=== PATIENT | female | born 1965 | race African-American/Black ===

== ENCOUNTER 2018-01-01 17:17 | Inpatient (IN) | payer OTHER ==
[~2018-01-01] VITALS: Ht 149.9 cm; Wt 88.0 kg
[2018-01-01] MEDS ORDERED: Albuterol/Ipratropium 3ml neb HHN ONE ×2 (17:45→18:15)
[2018-01-01] MEDS ORDERED: Benzonatate 100mg Perles ORAL ONE (17:45)
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
[2018-01-01] MEDS ORDERED: NKM (19:15)
[2018-01-01 20:17] LABS: ANION GAP 11 mmol/L (5-15); BLOOD UREA NITROGEN 11 mg/dL (7-18); CALCIUM 9.5 MG/DL (8.5-10.1); CARBON DIOXIDE 26 MMOL/L (21-32); CHLORIDE 105 MMOL/L (98-107); POTASSIUM 3.3 MMOL/L (3.5-5.1); SODIUM 142 MMOL/L (136-145)
[2018-01-01 20:20] LABS: BASOPHILS % (AUTO) 0.6 % (0.0-2.0); EOSINOPHILS % (AUTO) 0.4 % (0.0-3.0); HEMATOCRIT 45.4 % (37.0-47.0); HEMOGLOBIN 14.9 G/DL (12.0-16.0); LYMPHOCYTES % (AUTO) 17.2 % (20.0-45.0); MEAN CORPUSCULAR VOLUME 90 FL (80-99); NEUTROPHILS % (AUTO) 78.9 % (45.0-75.0); PLATELET COUNT 229 K/UL (150-450); RED BLOOD COUNT 5.06 M/UL (4.20-5.40); RED CELL DISTRIBUTION WIDTH 13.3 % (11.6-14.8); WHITE BLOOD COUNT 10.3 K/UL (4.8-10.8)
[2018-01-01] MEDS ORDERED: Isovue-370 150ml vial INJ PRN (20:30)
[2018-01-01 20:31] LABS: ALANINE AMINOTRANSFERASE 43 U/L (12-78); ALBUMIN/GLOBULIN RATIO 0.8 (1.0-2.7); ALKALINE PHOSPHATASE 100 U/L (46-116); ASPARTATE AMINO TRANSFERASE 30 U/L (15-37); BILIRUBIN,TOTAL 0.4 MG/DL (0.2-1.0); CKMB 0.6 NG/ML (0.0-3.6); CREATINE KINASE 132 U/L (26-308)
[2018-01-01 20:54] VITALS: BP 170/96
[2018-01-01 21:50] VITALS: BP 211/111
[2018-01-01 22:40] VITALS: BP 174/98
[2018-01-01 23:08] VITALS: BP 168/100
[2018-01-02] VITALS (7 sets, daily range): BP systolic 134–180; BP diastolic 66–110
[2018-01-02] MEDS ORDERED: Albuterol/Ipratropium 3ml neb HHN SCH (07:00)
[2018-01-02] MEDS ORDERED: HydrALAZINE 25mg tab ORAL SCH (07:00)
--- NOTE | 2018-01-02 08:09 | Cardiology Progress Note ---
Assessment/Plan Assessment/Plan The patient is seen and examined, full consult report will be dictated shortly. Objective Last 24 Hour Vital Signs Date Time Temp Pulse Resp B/P (MAP) Pulse Ox O2 Delivery O2 Flow Rate FiO2 01/02/18 07:35 115 20 100 Room Air 21 01/02/18 07:35 21 01/02/18 07:27 118 20 98 Room Air 21 01/02/18 04:00 99.2 110 19 135/81 (99) 01/02/18 04:00 122 01/02/18 01:23 Room Air Room Air 01/02/18 01:19 98.2 125 22 164/110 (128) 01/02/18 00:19 133 186/113 01/02/18 00:05 99.1 132 20 180/100 100 Room Air 01/01/18 23:08 98.0 118 20 168/100 97 Room Air 01/01/18 22:40 98.4 124 16 174/98 95 Room Air 01/01/18 21:50 98.6 118 20 211/111 98 Room Air 01/01/18 20:54 98.3 128 18 170/96 98 Room Air 01/01/18 19:38 211/145 01/01/18 18:58 119 20 100 Room Air 01/01/18 18:50 112 20 98 Room Air 01/01/18 17:47 115 20 Room Air 01/01/18 17:47 21 01/01/18 17:47 115 20 98 Room Air 01/01/18 17:35 125 26 Room Air 01/01/18 17:24 98.2 125 26 161/107 98 Room Air Intake and Output 01/01/18 01/02/18 18:59 06:59 Intake Total 0 ml 2240 ml Balance 0 ml 2240 ml Intake Oral 0 ml 240 ml IV Total 2000 ml # Voids 2 Laboratory Tests Test 01/01/18 19:30 White Blood Count 10.3 K/UL (4.8-10.8) Red Blood Count 5.06 M/UL (4.20-5.40) Hemoglobin 14.9 G/DL (12.0-16.0) Hematocrit 45.4 % (37.0-47.0) Mean Corpuscular Volume 90 FL (80-99) Mean Corpuscular Hemoglobin 29.5 PG (27.0-31.0) Mean Corpuscular Hemoglobin Concent 32.9 G/DL (32.0-36.0) Red Cell Distribution Width 13.3 % (11.6-14.8) Platelet Count 229 K/UL (150-450) Mean Platelet Volume 9.1 FL (6.5-10.1) Neutrophils (%) (Auto) 78.9 % (45.0-75.0) H Lymphocytes (%) (Auto) 17.2 % (20.0-45.0) L Monocytes (%) (Auto) 3.0 % (1.0-10.0) Eosinophils (%) (Auto) 0.4 % (0.0-3.0) Basophils (%) (Auto) 0.6 % (0.0-2.0) D-Dimer 0.50 mg/L FEU (0.00-0.49) H Sodium Level 142 MMOL/L (136-145) Potassium Level 3.3 MMOL/L (3.5-5.1) L Chloride Level 105 MMOL/L (98-107) Carbon Dioxide Level 26 MMOL/L (21-32) Anion Gap 11 mmol/L (5-15) Blood Urea Nitrogen 11 mg/dL (7-18) Creatinine 1.0 MG/DL (0.55-1.30) Estimat Glomerular Filtration Rate > 60 mL/min (>60) Glucose Level 121 MG/DL (74-106) H Calcium Level 9.5 MG/DL (8.5-10.1) Total Bilirubin 0.4 MG/DL (0.2-1.0) Aspartate Amino Transf (AST/SGOT) 30 U/L (15-37) Alanine Aminotransferase (ALT/SGPT) 43 U/L (12-78) Alkaline Phosphatase 100 U/L (46-116) Total Creatine Kinase 132 U/L (26-308) Creatine Kinase MB 0.6 NG/ML (0.0-3.6) Creatine Kinase MB Relative Index 0.4 Troponin I 0.000 ng/mL (0.000-0.056) Pro-B-Type Natriuretic Peptide 48 pg/mL (0-125) Total Protein 9.0 G/DL (6.4-8.2) H Albumin 4.0 G/DL (3.4-5.0) Globulin 5.0 g/dL Albumin/Globulin Ratio 0.8 (1.0-2.7) L Jax Gonsalez MD Jan 02, 2018 08:09
[2018-01-02] MEDS: dilTIAZem HCl CD 120mg cap ORAL SCH (08:48)
--- NOTE | 2018-01-02 09:02 | Diagnostic Imaging Report ---
Indication: Chest pain Technique: Continuous helical transaxial imaging of the chest was obtained from the thoracic inlet to the upper abdomen during rapid intravenous contrast administration. Arterial phase of enhancement obtained. Coronal 2-D reformats were also obtained and maximum intensity projection images in multiple planes. Study obtained in a Siemens sensation [address] Automatic Exposure Control was utilized. Total Dose length Product (DLP): 689.[address] Dose Index Volume (CTDIvol): 25.79 mGy Comparison: None Findings: The pulmonary artery is not optimally opacified. No obvious central pulmonary embolus identified. Pulmonary emboli at the level of the segmental and subsegmental branches is not excludable. The heart is enlarged. There is a hiatal hernia. There is breathing motion present. Lungs are grossly clear. No pleural or pericardial effusions are identified. IMPRESSION: No obvious central pulmonary embolus, aortic dissection or aneurysm. No acute findings. Suboptimal evaluation. [facility] has communicated the preliminary results to the Emergency Department. Their findings are largely concordant with this report. The CT scanner at [facility] is accredited by the [employer] and the scans are performed using dose optimization techniques as appropriate to a performed exam including Automatic Exposure control.
[2018-01-02] MEDS ORDERED: Ipratropium 0.02% Inh Soln 2.5ml UD HHN PRN (09:30)
--- NOTE | 2018-01-02 09:32 | Consultation ---
Consult Note Consult Note DICT # [id number] Kendrick Lam MD Jan 02, 2018 09:32
[2018-01-02] MEDS ORDERED: ALPRAZolam 0.5mg tab ORAL PRN (09:45)
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
--- NOTE | 2018-01-02 12:12 | Diagnostic Imaging Report ---
Indication: Cough Comparison: None A single view chest radiograph was obtained. Findings: No definite infiltrate or pulmonary vascular congestion identified. The heart is enlarged. The aorta is mildly enlarged consistent with atherosclerotic vascular disease. The bones are unremarkable. Impression: No acute disease
[2018-01-02 13:46] LABS: APPEARANCE,URINE CLEAR; BILIRUBIN, URINE NEGATIVE (NEGATIVE); COLOR,URINE PALE YELLOW; GLUCOSE, URINE (UA) NEGATIVE (NEGATIVE); KETONES,URINE NEGATIVE (NEGATIVE); LEUKOCYTE ESTERASE ,URINE 1+ (NEGATIVE); NITRITE,URINE NEGATIVE (NEGATIVE); PH,URINE 7 (4.5-8.0); PROTEIN,URINE NEGATIVE (NEGATIVE); UROBILINOGEN,URINE NORMAL MG/DL (0.0-1.0)
--- NOTE | 2018-01-02 15:30 | Consultation ---
DATE OF CONSULTATION: 01/02/2018 CARDIOLOGY CONSULTATION CONSULTING PHYSICIAN: Jax Gonsalez M.D. REFERRING PHYSICIAN: Kasie Newberry M.D. REASON FOR CONSULTATION: Management of dyspnea and accelerated hypertension. HISTORY OF PRESENT ILLNESS: The patient is an very unfortunate 52-year-old female with past medical history significant for asthma who presents to the emergency department complaining of shortness of breath. Apparently she got upset at work and that triggered her breathing symptoms. The patient did not respond to her usual inhalers and decided to come to the hospital for further evaluation and management. She had associated dry cough but no fever, chills. She did not have any chest pain at the time of arrival to the hospital. Initial blood pressure at time of arrival to the hospital was 161/107 mmHg and heart rate of 125. She states that she has been feeling palpitation. She denies any prior history of hypertension and a very meticulous about measuring her blood pressure at home. PAST MEDICAL HISTORY: Asthma. PAST SURGICAL HISTORY: None. MEDICATIONS: List of medications at home includes only inhalers the names of which are not known. ALLERGIES: To shellfish. FAMILY HISTORY: No history of premature coronary artery disease or arrhythmogenic in the first-degree relative. REVIEW OF SYSTEMS: HEENT: Denies any headache, diplopia, blurred vision. CONSTITUTIONAL: Denies any fever, chills, night sweats, weight loss. CARDIOVASCULAR: Denies any chest pain, PND, orthopnea, leg swelling, syncope. Positive for palpitation and shortness of breath. PULMONARY: Positive for shortness of breath and cough but no hemoptysis. GASTROINTESTINAL: Denies any nausea, vomiting, diarrhea, constipation, abdominal pain, or GI bleed. GENITOURINARY: Denies any hematuria, dysuria, incontinence. NEUROLOGY: Denies any motor dysfunction, sensory deficit, or altered speech. PHYSICAL EXAMINATION: VITAL SIGNS: Blood pressure was 161/107, respirations 26, pulse of 125, temperature 98.2 degrees Fahrenheit, and O2 saturation 98% on room air. GENERAL: The patient is slightly overweight 52-year-old female, in no apparent respiratory distress. Alert and oriented x4. HEENT: Atraumatic and normocephalic. Anicteric. Pupils are equal, round, and reactive to light and accommodation. Extraocular muscles intact. NECK: JVP less than 5 centimeter. No carotid bruit. Carotid upstrokes 2+ bilaterally. CARDIOVASCULAR: Normal S1, S2. Regular rate and rhythm. No murmurs, gallops, or rubs. PMI is at fourth intercostal space at the midclavicular line. LUNGS: Clear to auscultation bilaterally. ABDOMEN: Soft, nontender, and nondistended. No hepatosplenomegaly. Positive bowel sounds. EXTREMITIES: No evidence of edema, clubbing, or cyanosis. LABORATORY FINDINGS: WBC is 10.3, hemoglobin of 14.9, hematocrit of 45.4, and platelet count is 229. Chemistry shows sodium 142, potassium 3.3, chloride 105, bicarbonate 26, BUN 11, creatinine 1.0, glucose 121. Calcium is 9.5. Troponin I was 0. ProBNP was 48. D-dimer is 0.5. A 12-lead electrocardiogram showed sinus tachycardia at a rate of [address] and T-wave abnormalities. There is evidence of the electrocardiogram. CT angiography of the chest in the emergency department to rule out pulmonary embolism. 1. Dyspnea most likely secondary to acute exacerbation of COPD. Chest x-ray did not show any evidence of pulmonary embolism and normal beta natriuretic peptide essentially rules out congestive heart failure. We will however proceed to obtain 2D echocardiography for assessment of the systolic and diastolic function which can ultimately help with hemodynamics as well. 2. Accelerated hypertension. She gives me reports of blood pressure at times over 180 mmHg, usually blood pressure ranging from 128 to 136 mmHg at home. I would discuss with her in regards with the initiating a long-acting calcium channel kenisha which can also likely help her heart rate. Diltiazem long-acting 120 mg will be initiated. We will monitor the patient's hemodynamics in the next few days. 3. Further diagnostic and therapeutic decision will be based on results of 2D echocardiography. I would like to thank, Dr. Newberry, for the courtesy of this consultation. Jax Gonsalez M.D. DR: Eduarda JOB#: [id number] CC:
--- NOTE | 2018-01-02 15:55 | Cardiology Report ---
APPROVED REPORT EXAM: Two-dimensional and M-mode echocardiogram with Doppler and color Doppler. INDICATION Ventricular function M-Mode DIMENSIONS IVSd1.3 (0.7-1.1cm)Left Atrium (MM)4.0 (1.6-4.0cm) LVDd3.1 (3.5-5.6cm)Aortic Root3.1 (2.0-3.7cm) PWd1.2 (0.7-1.1cm)Aortic Cusp Exc.2.0 (1.5-2.0cm) LVDs1.9 (2.5-4.0cm) PWs1.5 cm Normal left ventricular chamber size, systolic function and wall motion. Left ventricular ejection fraction estimated to be 60 %. Mild left ventricular hypertrophy. Anterior Echo-free space, may be due to pericardial fat or effusion. All other cardiac chamber sizes are within normal limits. Focal aortic valve sclerosis with adequate cusp excursion. Thickened mitral valve leaflets with normal excursion. Mild mitral annulus and aortic root calcification. Normal pulmonic valve structure. Normal tricuspid valve structure. IVC is normal in size with physiological collapse. A color flow and spectral Doppler study was performed and revealed: No aortic insufficiency. Mild to moderate mitral regurgitation. Mitral diastolic velocities suggest mild left ventricular diastolic dysfunction (Grade I). Mild to moderate tricuspid regurgitation. Tricuspid systolic velocities suggests peak right ventricular systolic pressure of 32 mmHg. No pulmonic regurgitation present.
--- NOTE | 2018-01-02 16:45 | Consultation ---
DATE OF CONSULTATION: 01/02/2018 PULMONARY CONSULTATION CONSULTING PHYSICIAN: Kendrick Lam M.D. REFERRING PHYSICIAN: Kasie Newberry M.D. REASON FOR CONSULTATION: Shortness of breath and asthma. HISTORY OF PRESENT ILLNESS: The patient is a 52-year-old female, nonsmoker with stable asthma, who had an incident at work yesterday where she felt her supervisor pumping was accosting her. She noted sudden onset of shortness of breath, wheezing, and palpitations. She was actually told by her supervisor pumping she has to go to the ER to be cleared to come back to work, so she came to the ER for evaluation. Upon presentation to the ER, she was afebrile, but had sinus tachycardia to 125. She was actually tachycardic when she arrived, otherwise she was saturating 100% on room air. Because of concern for pulmonary embolism and a borderline D-dimer, a CT angio was done which was negative for PE. Her troponin is also negative. The patient feels markedly improved now. She states that her shortness of breath is back to baseline. No wheezing. No cough. No fevers or chills. Her chest discomfort has abated. No nausea, vomiting, diarrhea, or constipation. With respect to her asthma, she was diagnosed as a child. She has never been hospitalized or intubated. She uses p.r.n. Ventolin only and has not had an exacerbation in many years. She has no history of tobacco, alcohol, or drug use. PAST MEDICAL HISTORY: Asthma, well controlled. PAST SURGICAL HISTORY: None. ALLERGIES: Shellfish. MEDICATIONS: Cyqed-pi-yejrzvsyr medications, p.r.n. Ventolin. SOCIAL HISTORY: She is , has 3 grown children, works as an GATE TENDER at a facility. No tobacco, alcohol, or drug use. FAMILY HISTORY: No history of cardiopulmonary disease. REVIEW OF SYSTEMS: Negative other than history of present illness. PHYSICAL EXAMINATION: VITAL SIGNS: Temperature 98.7, pulse 120, blood pressure 149/97, respiratory rate 21, saturating 100% on room air. GENERAL: She is an obese female, in no acute distress. Awake, alert, and oriented x3. HEENT: Normocephalic and atraumatic. Oropharynx with moist mucous membranes. NECK: Without lymphadenopathy or JVP. Mallampati score is 4. CHEST: Clear. HEART: Tachycardic, but regular. ABDOMEN: Soft and nontender. EXTREMITIES: No cyanosis, clubbing, or edema. ANCILLARY DATA: White count 10.3, hemoglobin 14.9, and platelet count 229,000. D-dimer 0.5. Sodium 142, potassium 3.3, chloride 105, bicarbonate 26, BUN 11, creatinine 1, glucose 121, calcium 9.5. Total bilirubin 0.4, AST 30, ALT 43, alkaline phosphatase 100. CK 132, CK-MB 0.6, troponin negative, BNP 48. Total protein 9, albumin 4, globulin 5. CT angio of the chest, no parenchymal abnormalities, negative for PE. It was a suboptimal study per the radiologist. ASSESSMENT: The patient is a 52-year-old female, lifelong nonsmoker with history of obesity and well-controlled asthma, presenting with shortness of breath and sinus tachycardia in the setting of an aggravating event at work. I suspect that her constellation of symptoms is initially secondary to anxiety and stress related to an occupational event. She had a borderline D-dimer and a negative CT angio and does not appear to be in an acute exacerbation of her asthma. PROBLEM LIST: 1. Shortness of breath and dyspnea, likely secondary to anxiety related to a work event. 2. Asthma, well controlled without evidence of exacerbation. 3. Sinus tachycardia. 4. Elevated blood pressure (no prior history of hypertension). 5. Obesity. TREATMENT PLAN: 1. Optimize pulmonary hygiene/mobilize as tolerated. 2. No need for any cdnsf-grx-ghkav bronchodilators. 3. P.r.n. Atrovent nebulizers only. 4. Cardiology evaluation is underway. 5. P.r.n. Xanax. 6. Monitor for signs of respiratory infection. 7. Consider Psychiatry evaluation. 8. The patient was advised to report her occupational injury. 9. DVT prophylaxis, heparin subcutaneous. 10. The patient should have outpatient pulmonary evaluation including PFTs and a sleep study. Dr. Newberry, thank you for allowing me to assist in the care of your patient. If I may be of any assistance in the future, please do not hesitate to ask. Kendrick Lam M.D. : Bret JOB#: [id number] CC:
--- NOTE | 2018-01-02 17:38 | Cardiology Report ---
APPROVED REPORT EKG Measurement Heart [id number] Sinus tachycardia Cannot rule out Anterior infarct, age undetermined Abnormal ECG
[2018-01-03] VITALS (7 sets, daily range): BP systolic 123–153; BP diastolic 72–107
--- NOTE | 2018-01-03 | History and Physical Report ---
DATE OF ADMISSION: 01/01/2018 HISTORY OF PRESENT ILLNESS: The patient comes in because of shortness of breath, chest pain, and elevated blood pressure. She has history of asthma. She was also tachycardic. Given breathing treatment, hydralazine, and multiple BP medications and admitted for those reasons. The patient states all this happened , has been complaining of shortness of breath and chest pain for one day, made worse by coughing. The patient is also wheezing and has nonproductive cough. The patient denies fever or chills. Denies orthopnea. Denies pain in the lower extremity. The patient does have some palpitation as well. PAST MEDICAL HISTORY: Significant for asthma. PAST SURGICAL HISTORY: None. ALLERGIES: To shellfish. MEDICATIONS: Inhalers. FAMILY HISTORY: Noncontributory. SOCIAL HISTORY: Denies history of smoking, alcohol, or illicit drugs. REVIEW OF SYSTEMS: HEENT: Denies headaches. RESPIRATORY: Reports shortness of breath and wheezing for the past one day. Wheezing and chest pain as well made worse by coughing. EXTREMITIES: Denies pain in lower extremity. CENTRAL NERVOUS SYSTEM: No change in vision or speech pattern. PHYSICAL EXAMINATION: GENERAL: The patient is not in any acute distress. VITAL SIGNS: Temperature is basically 98.5, pulse is 120, and blood pressure 149/97. HEENT: PERRLA. NECK: Supple. No lymphadenopathy. CHEST: Bilateral wheezing. CARDIOVASCULAR: Tachycardic. GASTROINTESTINAL: Soft, nontender, nondistended. No organomegaly. EXTREMITIES: No edema. NEUROLOGIC: Sensory intact to light touch. Reflexes are equal on both sides and moves all four extremities. LABORATORY DATA: WBC of 10, hemoglobin 14.9, platelets 229,000. Sodium 142, potassium 3.3, BUN of 11, creatinine 1. ASSESSMENT AND PLAN: Asthma exacerbation, tachycardia, pyjppdygj-bb-fqvqw blood pressure, rule out hypertensive urgency. I have asked Dr. Roper, Dr. Lam, and Dr. Gonsalez to see the patient for the blood pressure management as well as for asthma exacerbation management. The patient is not in acute distress at this point. Kasie Newberry M.D. DR: HAYLEY JOB#: [id number] CC:
[2018-01-03 08:13] LABS: BASOPHILS % (AUTO) 0.6 % (0.0-2.0); EOSINOPHILS % (AUTO) 2.3 % (0.0-3.0); HEMATOCRIT 44.7 % (37.0-47.0); HEMOGLOBIN 14.5 G/DL (12.0-16.0); LYMPHOCYTES % (AUTO) 35.1 % (20.0-45.0); MEAN CORPUSCULAR VOLUME 90 FL (80-99); MONOCYTES % (AUTO) 4.9 % (1.0-10.0); NEUTROPHILS % (AUTO) 57.1 % (45.0-75.0); PLATELET COUNT 278 K/UL (150-450); RED BLOOD COUNT 4.98 M/UL (4.20-5.40); RED CELL DISTRIBUTION WIDTH 13.4 % (11.6-14.8); WHITE BLOOD COUNT 9.5 K/UL (4.8-10.8)
[2018-01-03 09:00] LABS: ALANINE AMINOTRANSFERASE 31 U/L (12-78); ALBUMIN 3.2 G/DL (3.4-5.0); ALBUMIN/GLOBULIN RATIO 0.7 (1.0-2.7); ALKALINE PHOSPHATASE 86 U/L (46-116); ANION GAP 11 mmol/L (5-15); ASPARTATE AMINO TRANSFERASE 29 U/L (15-37); BILIRUBIN,TOTAL 0.4 MG/DL (0.2-1.0); BLOOD UREA NITROGEN 10 mg/dL (7-18); CALCIUM 8.6 MG/DL (8.5-10.1); CARBON DIOXIDE 21 MMOL/L (21-32); CHLORIDE 108 MMOL/L (98-107); CHOLESTEROL 156 MG/DL (< 200); CREATININE 0.8 MG/DL (0.55-1.30); HDL CHOLESTEROL 58 MG/DL (40-60); PHOSPHORUS 2.5 MG/DL (2.5-4.9); POTASSIUM 4.2 MMOL/L (3.5-5.1); SODIUM 139 MMOL/L (136-145); TRIGLYCERIDES 42 MG/DL (30-150)
[2018-01-03] MEDS: dilTIAZem HCl CD 120mg cap ORAL SCH (09:06)
[2018-01-03] MEDS ORDERED: ALPRAZolam 0.5mg tab ORAL PRN (12:21)
[2018-01-03] MEDS ORDERED: Ipratropium 0.02% Inh Soln 2.5ml UD HHN PRN (12:22)
--- NOTE | 2018-01-03 12:35 | General Progress Note ---
Assessment/Plan Problem List: (1) Asthma exacerbation ICD Codes: J45.901 - Unspecified asthma with (acute) exacerbation SNOMED: [id number] Status: progressing Assessment/Plan asthma exacerbation improving atypicl cp Subjective Respiratory: Reports: shortness of breath, SOB with excertion Allergies: Coded Allergies: SHELLFISH DERIVED (Verified Allergy, Unknown, 01/01/18) Objective Last 24 Hour Vital Signs Date Time Temp Pulse Resp B/P (MAP) Pulse Ox O2 Delivery O2 Flow Rate FiO2 01/03/18 12:00 99.0 87 20 153/107 (122) 97 87 01/03/18 09:06 102 148/96 01/03/18 09:00 Room Air Room Air 01/03/18 08:00 98.2 102 20 148/96 (113) 97 01/03/18 08:00 109 01/03/18 04:00 97 01/03/18 04:00 98.6 97 20 142/87 (105) 96 01/03/18 00:00 99.5 95 20 153/100 (117) 98 01/03/18 00:00 95 01/02/18 20:00 115 01/02/18 20:00 Room Air Room Air 01/02/18 20:00 98.9 115 20 145/92 (109) 96 01/02/18 19:30 108 18 Room Air 21 01/02/18 16:00 98.2 110 22 155/100 (118) 96 01/02/18 16:00 105 01/02/18 13:18 21 01/02/18 13:18 110 18 99 Room Air 21 01/02/18 13:08 115 18 97 Room Air 21 Intake and Output 01/02/18 01/03/18 18:59 06:59 # Voids 3 2 Laboratory Tests 01/02/18 13:31: Urine Color Pale yellow, Urine Appearance Clear, Urine pH 7, Urine Specific [place] 1.015, Urine Protein Negative, Urine Glucose (UA) Negative, Urine Ketones Negative, Urine Blood Negative, Urine Nitrite Negative, Urine Bilirubin Negative, Urine Urobilinogen Normal, Urine Leukocyte Esterase 1+H, Urine RBC 0-2 , Urine WBC 2-4, Urine Squamous Epithelial Cells Few, Urine Bacteria Occasional , Urine Opiates Screen Negative, Urine Barbiturates Screen Negative, Phencyclidine (PCP) Screen Negative, Urine Amphetamines Screen Negative, Urine Benzodiazepines Screen Negative, Urine Cocaine Screen Negative, Urine Marijuana (THC) Screen Negative 01/02/18 16:12: Arterial Blood pH 7.450, Arterial Blood Partial Pressure CO2 32.1L, Arterial Blood Partial Pressure O2 82.8, Arterial Blood HCO3 21.9L, Arterial Blood Oxygen Saturation 96.0, Arterial Blood Base Excess -1.2, Raen Test Positive 01/03/18 07:14: Sodium Level 139, Potassium Level 4.2, Chloride Level 108H, Carbon Dioxide Level 21, Anion Gap 11, Blood Urea Nitrogen 10, Creatinine 0.8, Estimat Glomerular Filtration Rate > 60, Glucose Level 82, Hemoglobin A1c 5.8, Uric Acid 3.9, Calcium Level 8.6, Phosphorus Level 2.5, Magnesium Level 2.0, Total Bilirubin 0.4, Aspartate Amino Transf (AST/SGOT) 29, Alanine Aminotransferase ( ALT/SGPT) 31, Alkaline Phosphatase 86, Pro-B-Type Natriuretic Peptide 49, Total Protein 7.8, Albumin 3.2L, Globulin 4.6, Albumin/Globulin Ratio 0.7L, Triglycerides Level 42, Cholesterol Level 156, LDL Cholesterol 102H, HDL Cholesterol 58, Cholesterol/HDL Ratio 2.7L, Thyroid Stimulating Hormone (TSH) 2.409 01/03/18 08:00: White Blood Count 9.5, Red Blood Count 4.98, Hemoglobin 14.5, Hematocrit 44.7, Mean Corpuscular Volume 90, Mean Corpuscular Hemoglobin 29.1, Mean Corpuscular Hemoglobin Concent 32.4, Red Cell Distribution Width 13.4, Platelet Count 278, Mean Platelet Volume 9.2, Neutrophils (%) (Auto) 57.1, Lymphocytes (%) (Auto) 35.1, Monocytes (%) (Auto) 4.9, Eosinophils (%) (Auto) 2.3, Basophils (%) (Auto ) 0.6 Height (Feet): 4 Height (Inches): 11.00 Weight (Pounds): 194 Kasie Newberry MD Jan 03, 2018 12:35
--- NOTE | 2018-01-03 13:05 | Pulmonology Progress Note ---
Assessment/Plan Assessment/Plan ASSESSMENT: The patient is a 52-year-old female, lifelong nonsmoker with history of obesity and well-controlled asthma, presenting with shortness of breath and sinus tachycardia in the setting of an aggravating event at work. I suspect that her constellation of symptoms is initially secondary to anxiety and stress related to an occupational event. She had a borderline D-dimer and a negative CT angio and does not appear to be in an acute exacerbation of her asthma. PROBLEM LIST: 1. Shortness of breath and dyspnea, likely secondary to anxiety related to a work event. 2. Asthma, well controlled without evidence of exacerbation. 3. Sinus tachycardia - RESOLVED 4. Elevated blood pressure (no prior history of hypertension). 5. Obesity. TREATMENT PLAN: 1. Optimize pulmonary hygiene/mobilize as tolerated. 2. No need for any pgdxa-baw-cxajf bronchodilators. 3. P.r.n. Atrovent nebulizers only. 4. F/U cardiology recs 5. P.r.n. Xanax. 6. Monitor for signs of respiratory infection. 7. Consider Psychiatry evaluation. 8. The patient was advised to report her occupational injury. 9. DVT prophylaxis, heparin subcutaneous. 10. The patient should have outpatient pulmonary evaluation including PFTs and a sleep study. Subjective Allergies: Coded Allergies: SHELLFISH DERIVED (Verified Allergy, Unknown, 01/01/18) Subjective Better, AFVSS, ST resolved, on RA Less SOB, no wheezing, no cough, no F/C, no CP Objective Last 24 Hour Vital Signs Date Time Temp Pulse Resp B/P (MAP) Pulse Ox O2 Delivery O2 Flow Rate FiO2 01/03/18 12:59 Room Air Room Air 01/03/18 12:33 99.4 79 19 145/92 (109) 98 79 01/03/18 12:00 99.0 87 20 153/107 (122) 97 87 01/03/18 09:06 102 148/96 01/03/18 09:00 Room Air Room Air 01/03/18 08:00 98.2 102 20 148/96 (113) 97 01/03/18 08:00 109 01/03/18 04:00 97 01/03/18 04:00 98.6 97 20 142/87 (105) 96 01/03/18 00:00 99.5 95 20 153/100 (117) 98 01/03/18 00:00 95 01/02/18 20:00 115 01/02/18 20:00 Room Air Room Air 01/02/18 20:00 98.9 115 20 145/92 (109) 96 01/02/18 19:30 108 18 Room Air 21 01/02/18 16:00 98.2 110 22 155/100 (118) 96 01/02/18 16:00 105 01/02/18 13:18 21 01/02/18 13:18 110 18 99 Room Air 21 01/02/18 13:08 115 18 97 Room Air 21 Intake and Output 01/02/18 01/03/18 18:59 06:59 # Voids 3 2 General Appearance: WD/WN, no acute distress HEENT: normocephalic, atraumatic, anicteric, mucous membranes moist Respiratory/Chest: chest wall non-tender, lungs clear, normal breath sounds, no respiratory distress, no accessory muscle use Cardiovascular: normal peripheral pulses, normal rate, regular rhythm Abdomen: normal bowel sounds, soft, non tender, no organomegaly, non distended , no mass Extremities: no cyanosis, no clubbing, no edema Laboratory Tests 01/02/18 13:31: Urine Color Pale yellow, Urine Appearance Clear, Urine pH 7, Urine Specific [place] 1.015, Urine Protein Negative, Urine Glucose (UA) Negative, Urine Ketones Negative, Urine Blood Negative, Urine Nitrite Negative, Urine Bilirubin Negative, Urine Urobilinogen Normal, Urine Leukocyte Esterase 1+H, Urine RBC 0-2 , Urine WBC 2-4, Urine Squamous Epithelial Cells Few, Urine Bacteria Occasional , Urine Opiates Screen Negative, Urine Barbiturates Screen Negative, Phencyclidine (PCP) Screen Negative, Urine Amphetamines Screen Negative, Urine Benzodiazepines Screen Negative, Urine Cocaine Screen Negative, Urine Marijuana (THC) Screen Negative 01/02/18 16:12: Arterial Blood pH 7.450, Arterial Blood Partial Pressure CO2 32.1L, Arterial Blood Partial Pressure O2 82.8, Arterial Blood HCO3 21.9L, Arterial Blood Oxygen Saturation 96.0, Arterial Blood Base Excess -1.2, Aren Test Positive 01/03/18 07:14: Sodium Level 139, Potassium Level 4.2, Chloride Level 108H, Carbon Dioxide Level 21, Anion Gap 11, Blood Urea Nitrogen 10, Creatinine 0.8, Estimat Glomerular Filtration Rate > 60, Glucose Level 82, Hemoglobin A1c 5.8, Uric Acid 3.9, Calcium Level 8.6, Phosphorus Level 2.5, Magnesium Level 2.0, Total Bilirubin 0.4, Aspartate Amino Transf (AST/SGOT) 29, Alanine Aminotransferase ( ALT/SGPT) 31, Alkaline Phosphatase 86, Pro-B-Type Natriuretic Peptide 49, Total Protein 7.8, Albumin 3.2L, Globulin 4.6, Albumin/Globulin Ratio 0.7L, Triglycerides Level 42, Cholesterol Level 156, LDL Cholesterol 102H, HDL Cholesterol 58, Cholesterol/HDL Ratio 2.7L, Thyroid Stimulating Hormone (TSH) 2.409 01/03/18 08:00: White Blood Count 9.5, Red Blood Count 4.98, Hemoglobin 14.5, Hematocrit 44.7, Mean Corpuscular Volume 90, Mean Corpuscular Hemoglobin 29.1, Mean Corpuscular Hemoglobin Concent 32.4, Red Cell Distribution Width 13.4, Platelet Count 278, Mean Platelet Volume 9.2, Neutrophils (%) (Auto) 57.1, Lymphocytes (%) (Auto) 35.1, Monocytes (%) (Auto) 4.9, Eosinophils (%) (Auto) 2.3, Basophils (%) (Auto ) 0.6 Current Medications Medications (Trade) Dose Ordered Sig/Nimco Route PRN Reason Start Time Stop Time Status Last Admin Dose Admin Alprazolam (Xanax) 1 mg Q4H PRN ORAL For Anxiety 01/03/18 12:21 01/09/18 12:20 Clonidine HCl (Catapres Tab) 0.1 mg Q4H PRN ORAL For High Blood Pressure 01/03/18 12:21 02/01/18 12:20 Diltiazem HCl (Cardizem CD) 120 mg DAILY ORAL 01/04/18 09:00 02/01/18 08:59 Famotidine (Pepcid) 20 mg BID ORAL 01/03/18 18:00 02/01/18 17:59 Ipratropium [place] (Atrovent) 500 mcg Q4H PRN HHN Shortness of Breath 01/03/18 12:22 01/07/18 12:21 Kendrick Lam MD Jan 03, 2018 13:05
--- NOTE | 2018-01-03 14:53 | Nephrology Progress Note ---
Assessment/Plan Problem List: (1) Asthma exacerbation (2) HTN (hypertension) (3) Anxiety disorder Assessment ASTHMA HTN LOW K ANXIETY DISORDR Plan po K Pepcid Cardiazem PRN Clonidin Monitor lytes Subjective ROS Limited/Unobtainable: No Objective Objective Last 24 Hour Vital Signs Date Time Temp Pulse Resp B/P (MAP) Pulse Ox O2 Delivery O2 Flow Rate FiO2 01/03/18 12:59 Room Air Room Air 01/03/18 12:33 99.4 79 19 145/92 (109) 98 79 01/03/18 12:00 99.0 87 20 153/107 (122) 97 87 01/03/18 09:06 102 148/96 01/03/18 09:00 Room Air Room Air 01/03/18 08:00 98.2 102 20 148/96 (113) 97 01/03/18 08:00 109 01/03/18 04:00 97 01/03/18 04:00 98.6 97 20 142/87 (105) 96 01/03/18 00:00 99.5 95 20 153/100 (117) 98 01/03/18 00:00 95 01/02/18 20:00 115 01/02/18 20:00 Room Air Room Air 01/02/18 20:00 98.9 115 20 145/92 (109) 96 01/02/18 19:30 108 18 Room Air 21 01/02/18 16:00 98.2 110 22 155/100 (118) 96 01/02/18 16:00 105 Intake and Output 01/02/18 01/03/18 18:59 06:59 # Voids 3 2 Laboratory Tests 01/02/18 16:12: Arterial Blood pH 7.450, Arterial Blood Partial Pressure CO2 32.1L, Arterial Blood Partial Pressure O2 82.8, Arterial Blood HCO3 21.9L, Arterial Blood Oxygen Saturation 96.0, Arterial Blood Base Excess -1.2, Aren Test Positive 01/03/18 07:14: Sodium Level 139, Potassium Level 4.2, Chloride Level 108H, Carbon Dioxide Level 21, Anion Gap 11, Blood Urea Nitrogen 10, Creatinine 0.8, Estimat Glomerular Filtration Rate > 60, Glucose Level 82, Hemoglobin A1c 5.8, Uric Acid 3.9, Calcium Level 8.6, Phosphorus Level 2.5, Magnesium Level 2.0, Total Bilirubin 0.4, Aspartate Amino Transf (AST/SGOT) 29, Alanine Aminotransferase ( ALT/SGPT) 31, Alkaline Phosphatase 86, Pro-B-Type Natriuretic Peptide 49, Total Protein 7.8, Albumin 3.2L, Globulin 4.6, Albumin/Globulin Ratio 0.7L, Triglycerides Level 42, Cholesterol Level 156, LDL Cholesterol 102H, HDL Cholesterol 58, Cholesterol/HDL Ratio 2.7L, Thyroid Stimulating Hormone (TSH) 2.409 01/03/18 08:00: White Blood Count 9.5, Red Blood Count 4.98, Hemoglobin 14.5, Hematocrit 44.7, Mean Corpuscular Volume 90, Mean Corpuscular Hemoglobin 29.1, Mean Corpuscular Hemoglobin Concent 32.4, Red Cell Distribution Width 13.4, Platelet Count 278, Mean Platelet Volume 9.2, Neutrophils (%) (Auto) 57.1, Lymphocytes (%) (Auto) 35.1, Monocytes (%) (Auto) 4.9, Eosinophils (%) (Auto) 2.3, Basophils (%) (Auto ) 0.6 Height (Feet): 4 Height (Inches): 11.00 Weight (Pounds): 194 Cardiovascular: tachycardia Respiratory/Chest: lungs clear Luis Roper MD Jan 03, 2018 14:53
[2018-01-03] MEDS ORDERED: dilTIAZem HCl CD 120mg cap ORAL SCH (15:00)
--- NOTE | 2018-01-03 23:53 | Cardiology Progress Note ---
Assessment/Plan Assessment/Plan 1. Dyspnea most likely secondary to acute exacerbation of COPD. Normal beta natriuretic peptide essentially rules out congestive heart failure. 2D echo reveals normal LV systolic function with LVEF at 60%, diastolic data is consistent with impaired LV relaxation but normal intra-cardiac filling pressure. 2. Accelerated hypertension, continue Diltiazem 240mg daily, will continue monitoring his hemodynamics. Subjective Subjective Transferred to non-telemetry bed. No cardiac events noted. Objective Last 24 Hour Vital Signs Date Time Temp Pulse Resp B/P (MAP) Pulse Ox O2 Delivery O2 Flow Rate FiO2 01/03/18 16:01 79 145/92 01/03/18 16:00 98.0 102 19 130/94 (106) 98 01/03/18 12:59 Room Air Room Air 01/03/18 12:33 99.4 79 19 145/92 (109) 98 79 01/03/18 12:00 99.0 87 20 153/107 (122) 97 87 01/03/18 09:06 102 148/96 01/03/18 09:00 Room Air Room Air 01/03/18 08:00 98.2 102 20 148/96 (113) 97 01/03/18 08:00 109 01/03/18 04:00 97 01/03/18 04:00 98.6 97 20 142/87 (105) 96 01/03/18 00:00 99.5 95 20 153/100 (117) 98 01/03/18 00:00 95 Intake and Output 01/02/18 01/03/18 19:00 07:00 # Voids 3 2 Laboratory Tests Test 01/03/18 07:14 01/03/18 08:00 Sodium Level 139 MMOL/L (136-145) Potassium Level 4.2 MMOL/L (3.5-5.1) Chloride Level 108 MMOL/L (98-107) H Carbon Dioxide Level 21 MMOL/L (21-32) Anion Gap 11 mmol/L (5-15) Blood Urea Nitrogen 10 mg/dL (7-18) Creatinine 0.8 MG/DL (0.55-1.30) Estimat Glomerular Filtration Rate > 60 mL/min (>60) Glucose Level 82 MG/DL (74-106) Hemoglobin A1c 5.8 % (4.3-6.0) Uric Acid 3.9 MG/DL (2.6-7.2) Calcium Level 8.6 MG/DL (8.5-10.1) Phosphorus Level 2.5 MG/DL (2.5-4.9) Magnesium Level 2.0 MG/DL (1.8-2.4) Total Bilirubin 0.4 MG/DL (0.2-1.0) Aspartate Amino Transf (AST/SGOT) 29 U/L (15-37) Alanine Aminotransferase (ALT/SGPT) 31 U/L (12-78) Alkaline Phosphatase 86 U/L (46-116) Pro-B-Type Natriuretic Peptide 49 pg/mL (0-125) Total Protein 7.8 G/DL (6.4-8.2) Albumin 3.2 G/DL (3.4-5.0) L Globulin 4.6 g/dL Albumin/Globulin Ratio 0.7 (1.0-2.7) L Triglycerides Level 42 MG/DL (30-150) Cholesterol Level 156 MG/DL (< 200) LDL Cholesterol 102 mg/dL (<100) H HDL Cholesterol 58 MG/DL (40-60) Cholesterol/HDL Ratio 2.7 (3.3-4.4) L Thyroid Stimulating Hormone (TSH) 2.409 uiU/mL (0.358-3.740) White Blood Count 9.5 K/UL (4.8-10.8) Red Blood Count 4.98 M/UL (4.20-5.40) Hemoglobin 14.5 G/DL (12.0-16.0) Hematocrit 44.7 % (37.0-47.0) Mean Corpuscular Volume 90 FL (80-99) Mean Corpuscular Hemoglobin 29.1 PG (27.0-31.0) Mean Corpuscular Hemoglobin Concent 32.4 G/DL (32.0-36.0) Red Cell Distribution Width 13.4 % (11.6-14.8) Platelet Count 278 K/UL (150-450) Mean Platelet Volume 9.2 FL (6.5-10.1) Neutrophils (%) (Auto) 57.1 % (45.0-75.0) Lymphocytes (%) (Auto) 35.1 % (20.0-45.0) Monocytes (%) (Auto) 4.9 % (1.0-10.0) Eosinophils (%) (Auto) 2.3 % (0.0-3.0) Basophils (%) (Auto) 0.6 % (0.0-2.0) Objective HEENT: Atraumatic and normocephalic. Anicteric. Pupils are equal, round, and reactive to light and accommodation. Extraocular muscles intact. NECK: JVP less than 5 centimeter. No carotid bruit. Carotid upstrokes 2+ bilaterally. CARDIOVASCULAR: Normal S1, S2. Regular rate and rhythm. No murmurs, gallops, or rubs. PMI is at fourth intercostal space at the midclavicular line. LUNGS: Clear to auscultation bilaterally. ABDOMEN: Soft, nontender, and nondistended. No hepatosplenomegaly. Positive bowel sounds. EXTREMITIES: No evidence of edema, clubbing, or cyanosis. Jax Gonsalez MD Jan 03, 2018 23:53
[2018-01-04] VITALS: BP 120/77
[2018-01-04 04:00] VITALS: BP 114/60
[2018-01-04 08:00] VITALS: BP 132/91
[2018-01-04 08:37] VITALS: BP 132/91
[2018-01-04] MEDS ORDERED: dilTIAZem HCl CD 240mg cap ORAL SCH (09:00)
[2018-01-04] MEDS ORDERED: dilTIAZem HCl CD 120mg cap ORAL SCH (09:00)
--- NOTE | 2018-01-04 11:41 | Nephrology Progress Note ---
Assessment/Plan Problem List: (1) Asthma exacerbation (2) HTN (hypertension) (3) Anxiety disorder Assessment ASTHMA- HTN- LOW K- ANXIETY DISORDER Plan po K- Pepcid Cardiazem now 240 PRN Clonidin Monitor lytes Subjective ROS Limited/Unobtainable: No Objective Objective Last 24 Hour Vital Signs Date Time Temp Pulse Resp B/P (MAP) Pulse Ox O2 Delivery O2 Flow Rate FiO2 01/04/18 09:00 Room Air Room Air 01/04/18 08:55 84 18 Room Air 21 01/04/18 08:37 88 132/91 01/04/18 08:00 98.9 88 19 132/91 (105) 97 01/04/18 04:00 98.7 73 18 114/60 (78) 98 01/04/18 00:00 98.5 67 18 120/77 (91) 98 01/03/18 21:00 Room Air Room Air 01/03/18 20:00 98.5 80 19 123/72 (89) 98 01/03/18 19:00 73 20 Room Air 21 01/03/18 16:01 79 145/92 01/03/18 16:00 98.0 102 19 130/94 (106) 98 01/03/18 12:59 Room Air Room Air 01/03/18 12:33 99.4 79 19 145/92 (109) 98 79 01/03/18 12:00 99.0 87 20 153/107 (122) 97 87 Intake and Output 01/03/18 01/04/18 19:00 07:00 Intake Total 226 ml 480 ml Balance 226 ml 480 ml Intake Oral 226 ml 480 ml # Voids 4 Current Medications Medications (Trade) Dose Ordered Sig/Nimco Route PRN Reason Start Time Stop Time Status Last Admin Dose Admin Alprazolam (Xanax) 1 mg Q4H PRN ORAL For Anxiety 01/03/18 12:21 01/09/18 12:20 Clonidine HCl (Catapres Tab) 0.1 mg Q4H PRN ORAL For High Blood Pressure 01/03/18 12:21 02/01/18 12:20 Diltiazem HCl (Cardizem CD) 240 mg DAILY ORAL 01/04/18 09:00 02/01/18 08:59 01/04/18 08:37 Famotidine (Pepcid) 20 mg BID ORAL 01/03/18 18:00 02/01/18 17:59 01/04/18 08:38 Ipratropium [place] (Atrovent) 500 mcg Q4H PRN HHN Shortness of Breath 01/03/18 12:22 01/07/18 12:21 Height (Feet): 4 Height (Inches): 11.00 Weight (Pounds): 194 General Appearance: no apparent distress Objective no change Luis Roper MD Jan 04, 2018 11:41
[2018-01-04] MEDS ORDERED: CARDIZEM CD240 MG ORAL (11:48)
--- NOTE | 2018-01-04 22:37 | Cardiology Progress Note ---
Assessment/Plan Assessment/Plan 1. Dyspnea most likely secondary to acute exacerbation of COPD. Normal beta natriuretic peptide essentially rules out congestive heart failure. 2D echo reveals normal LV systolic function with LVEF at 60%, diastolic data is consistent with impaired LV relaxation but normal intra-cardiac filling pressure. 2. Accelerated hypertension, well controlled, continue Diltiazem. Subjective Subjective Denies any chest pain or SOB. Objective Last 24 Hour Vital Signs Date Time Temp Pulse Resp B/P (MAP) Pulse Ox O2 Delivery O2 Flow Rate FiO2 01/04/18 09:00 Room Air Room Air 01/04/18 08:55 84 18 Room Air 21 01/04/18 08:37 88 132/91 01/04/18 08:00 98.9 88 19 132/91 (105) 97 01/04/18 04:00 98.7 73 18 114/60 (78) 98 01/04/18 00:00 98.5 67 18 120/77 (91) 98 Intake and Output 01/03/18 01/04/18 19:00 07:00 Intake Total 226 ml 480 ml Balance 226 ml 480 ml Intake Oral 226 ml 480 ml # Voids 4 2D Echo: LVEF 60%, Mild LVH, Mild -Mod MR, Grade I LVDD, RVSP 32 mmHg Objective HEENT: Atraumatic and normocephalic. Anicteric. Pupils are equal, round, and reactive to light and accommodation. Extraocular muscles intact. NECK: JVP less than 5 centimeter. No carotid bruit. Carotid upstrokes 2+ bilaterally. CARDIOVASCULAR: Normal S1, S2. Regular rate and rhythm. No murmurs, gallops, or rubs. PMI is at fourth intercostal space at the midclavicular line. LUNGS: Clear to auscultation bilaterally. ABDOMEN: Soft, nontender, and nondistended. No hepatosplenomegaly. Positive bowel sounds. EXTREMITIES: No evidence of edema, clubbing, or cyanosis. Jax Gonsalez MD Jan 04, 2018 22:37
--- NOTE | 2018-01-07 12:48 | Discharge Summary ---
Discharge Summary Discharge Summary _ DATE OF ADMISSION: 01/01/2018 DATE OF DISCHARGE: 01/04/2018 REASON FOR ADMISSION: 52 years old female with history of asthma presented to emergency department complaining of shortness of breath. Patient was at work earlier prior to presentation to the ED and had anxiety provoking incident at work. Patient started to have shortness of breath and she subsequently came for evaluation. She reported dry cough, but no hemoptysis. She denied fevers, chest pain. She reported feeling of anxiety, but denied prior history of anxiety or panic attack She denied calf pain. She denied recent traveling . Upon evaluation patient was tachycardic with heart rate 125, tachypneic with respiratory rate 26; blood pressure was elevated 161/107. Laboratory workup revealed no leukocytosis, stable hemoglobin and hematocrit. ABG on room air showed no hypoxia or hypercapnia. Potassium 3.3. Glucose 121. Troponin was negative. EKG revealed sinus tachycardia , but no acute ischemic changes. Chest x-ray revealed no acute coronary pulmonary pathology. CTA of the chest revealed no obvious central pulmonary emboli or dissection or aneurysm. No acute findings. Patient admitted with diagnoses of elevated blood pressure, possible asthma exacerbation ,anxiety. CONSULTANTS: v/stol landing signal officer Dr. Gonsalez pulmonary Dr. Lam baggage security checker Dr. Roper [facility] COU[facility]SE: Patient admitted. Supplemental oxygen provided to keep pulse oximetry above 92%. Pulmonary toilet with bronchodilator provided. Patient received oral steroid in ED. Antitussive provided as needed. Blood pressure was managed with calcium channel kenisha . Blood pressure stabilized. Echocardiogram revealed preserved ejection fraction of 60% with mild left ventricular hypertrophy. No evidence of wall motion abnormalities. Mild-to- moderate mitral regurgitation and [id number] tricuspid regurgitation. Lipid panel revealed borderline elevated LDL 102. Stable triglycerides and total cholesterol. Patient was educated on low-fat low-cholesterol diet. TSH was within normal limits. Heart rate stabilized, no further tachycardia.. GI prophylaxis provided. Potassium was replaced. Urine toxicology screen was negative. Patient was recommended to have outpatient pulmonary evaluation, including PFT and sleep study. Patient was advised to report occupational incident. Patient clinically improved and was ready for discharge home. FINAL DIAGNOSES: Asthma with exacerbation Elevated blood pressure due to hypertensive urgency-resolved Sinus tachycardia likely related to anxiety disorder -resolved Anxiety disorder Obesity Shortness of breath and dyspnea likely secondary to asthma exacerbation and probably anxiety disorder related to working accident DISCHARGE MEDICATIONS: See Medication Reconciliation list. DISCHARGE INSTRUCTIONS: Patient was discharged home Follow up with primary care provider in one week. I have been assigned to dictate discharge summary for this account. I was not involved in the patient's management. Eugenia Bond NP Jan 07, 2018 12:48
== END 2018-01-04 12:00 | disposition home or self-care (01) | DRG 305 ==
LOC: EMR 18:27 → 2E 19:42 → EDBEDREQ 20:20 → 2E 21:53 → 3E 01-03 12:15
DX: I16.0 Hypertensive urgency (principal); R00.0 Tachycardia, unspecified; F41.9 Anxiety disorder, unspecified; E66.9 Obesity, unspecified; Z91.013 Allergy to seafood
CPT/HCPCS: 36415; 36600; 71045; 71275; 80053; 80061; 80307; 81001; 82550; 82553; 82803; 83036; 83735; 83880; 84100; 84443; 84484; 84550; 85025; 85379; 86140; 93005; 93306; 94640; 94664; 96361; 96365; 96375; 99285; J7620; J8499